=== PATIENT | male | born 1940 | race Caucasian/White ===

== ENCOUNTER 2018-03-17 10:38 | Emergency (ER) | payer BC ==
--- NOTE | 2018-03-17 10:52 | Emergency Department Record ---
History of Present Illness - General Chief complaint: Fatigue and Weakness Stated complaint: CONFUSED Time Seen by Provider: 03/17/18 10:40 Source: Patient Mode of Arrival: Wheelchair Limitations: No limitations - History of Present Illness Initial comments: 77 yo male present presents with weakness, slowed, slurred, confused at times, shakiness, facial weakness per the . The onset was about noon yesterday. The patient states he is tired. He denies and headache, chest pain, shortness of breath. He is oriented to person, place and time. The states he is having trouble with words at times, slow, left face appearance different starting yesterday. He has be walking with his cane but slow. He drove to the hospital. No falls or injury. He denies a stroke history. He recently had tests for carotid disease that demonstrated a 60% stenosis of the right carotid that did not require intervention. Normally he is active, conversational. He states he has not taken his Trazadone for 2-3 days. He states it gives him bad dreams. PMHx DE with stent, gout, spinal stenosis, obesity, carotid stent, HTn, neuropathy, renal insufficiency. PCP is Dr Gonzalez. Complaint: Generalized weakness Onset/Timin -: Days(s) Location: Generalized Severity: Moderate Consistency: Constant Improves with: None Worsens with: None Associated Symptoms: Denies other symptoms - [place] Coma Scale Eye Response: (4) Open spontaneously Motor Response: (6) Obeys commands Verbal Response: (5) Oriented [place] Total: 15 - Related Data Home Medications Medication Instructions Recorded Confirmed Last Taken Amlodipine Besylate [Norvasc] 5 mg PO DAILY 03/17/18 03/17/18 Unknown Aspirin [Aspir-Low] 81 mg PO DAILY 03/17/18 03/17/18 Unknown Baclofen 20 mg PO DAILY 03/17/18 03/17/18 Unknown Carbamazepine [Tegretol] 100 mg PO DAILY 03/17/18 03/17/18 Unknown Febuxostat [Uloric] 40 mg PO DAILY 03/17/18 03/17/18 Unknown Lisinopril 10 mg PO DAILY 03/17/18 03/17/18 Unknown Allergies Allergy/AdvReac Type Severity Reaction Status Date / Time transluscent dye Allergy Severe HIVES Uncoded 05/27/16 10:47 Travel Screening - Travel/Exposure Within Last 30 Days Have you traveled within the last 30 days?: No Review of Systems Constitutional: Reports: Weakness. Denies: Chills, Fever Eyes: Denies: Eye discharge, Eye pain, Photophobia ENT: Denies: Congestion, Throat pain Respiratory: Denies: Cough Cardiovascular: Denies: Chest pain, Palpitations, Syncope Endocrine: Reports: Fatigue Gastrointestinal: Denies: Abdominal pain, Diarrhea, Nausea, Vomiting Musculoskeletal: Denies: Arthralgia, Back pain, Joint swelling, Myalgia Skin: Denies: Bruising, Change in color, Rash Neurological: Reports: Weakness. Denies: Abnormal gait, Headache Psychiatric: Denies: Anxiety Hematological/Lymphatic: Denies: Easy bleeding, Easy bruising, Swollen glands Past Medical History - SOCIAL HISTORY Smoking Status: Former smoker Alcohol Use: None Drug Use: None - RESPIRATORY Hx Respiratory Disorders: No - CARDIOVASCULAR Hx Cardio Disorders: Yes Hx Abnormal EKG: Yes Hx Cardiac Cath: Yes Hx Chest Pain: Yes Hx Heart Attack: Yes Hx Hypertension: Yes Comment:: hypercholesteremia - NEURO Hx Neuro Disorders: Yes Hx Neuropathy: Yes - GI Hx GI Disorders: Yes Hx Abdominal Pain: Yes - Hx Genitourinary Disorders: No - ENDOCRINE Hx Endocrine Disorders: No - MUSCULOSKELETAL Hx Musculoskeletal Disorders: Yes Hx Arthritis: Yes Hx Back Injury: Yes Hx Gout: Yes - PSYCH Hx Psych Problems: No - HEMATOLOGY/ONCOLOGY Hx Hematology/Oncology Disorders: No Family Medical History Any Significant Family History?: Yes Hx Heart Disease: Mother, Grandparents Physical Exam - General General Appearance: Alert, Oriented x3, Cooperative, No acute distress, Other ( The patient falls asleep during my examination) - Head Head exam: Atraumatic, Normocephalic, Normal inspection - Eye Eye exam: Normal appearance, PERRL, EOMI. negative: Conjunctival injection, Nystagmus, Periorbital swelling - ENT ENT exam: Normal exam, Mucous membranes moist, Normal orophraynx Ear exam: Normal external inspection Nasal Exam: Normal inspection Mouth exam: Normal external inspection Teeth exam: Normal inspection Throat exam: Normal inspection - Neck Neck exam: Normal inspection, Full ROM. negative: Lymphadenopathy, Tenderness - Respiratory Respiratory exam: Normal lung sounds bilaterally. negative: Respiratory distress - Cardiovascular Cardiovascular Exam: Regular rate, Normal rhythm, Normal heart sounds Peripheral Pulses: 2+: Radial (R), Radial (L) - GI/Abdominal GI/Abdominal exam: Soft, Other (Obese). negative: Tenderness - Rectal Rectal exam: Deferred - exam: Deferred - Extremities Extremities exam: Normal inspection, Full ROM, Normal capillary refill. negative: Tenderness - Back Back exam: Reports: Normal inspection, Full ROM. Denies: Muscle spasm, Rash noted, Tenderness - Neurological Neurological exam: Altered, CN II-XII intact, Motor sensory deficit, Oriented X3 - Psychiatric Psychiatric exam: negative: Anxious, Normal affect (seems somewhat sleepy, answers questions appropriately however.) - Skin Skin exam: Dry, Intact, Normal color, Warm Course Vital Signs 03/17/18 10:39 Temperature 98.0 F Pulse Rate 75 Respiratory 18 Rate Blood Pressure 145/83 Pulse Ox 97 - Reevaluation(s) Reevaluation #1: EKG #1: 1042 Rate: 70 Rhythm: sinus [place]: normal Intervals: normal ST segments: NS no acute changes Prior: 03/17/18 10:54 03/17/18 11:18 [facility] reviewed. Patient had angio 02/27/18. 60 % Stenosis with no need for intervention. 03/17/18 12:00 The CMP was reviewed The patient has new renal insufficiency with a CR of 2.8 and BUN of 40 CT was reviewed with periventricular lesions, no large territorial infarct. 03/17/18 13:01 Dr Guerrero accepts the patient to [facility] for further work up of his symptoms. 03/17/18 13:37 Uric Acid is 7 Ammonia is 46 Medical Decision Making - Lab Data Result diagrams: 03/17/18 10:55 03/17/18 10:55 Disposition Disposition: Transfer Clinical Impression: Acute renal insufficiency, Encephalopathy acute Disposition: Acute Care Hospital Transfer Transfer To: [facility] Reason For Transfer: Acute renal insufficiency, confusion Accepting Physician: Cesar Time Discussed w/Accepting Physician: 12:44 Condition: (2) Stable Forms: Patient Portal Access Time of Disposition: 13:01 Quality - Quality Measures Quality Measures: N/A - Blood Pressure Screening Does Patient Have Any of the Following: Active Dx of HTN Blood Pressure Classification: Pre-Hypertensive BP Reading Systolic Measurement: 145 Diastolic Measurement: 83 Screening for High Blood Pressure: Patient Exclusion, Hx of HTN [G9744]
[2018-03-17 11:02] LABS: BASO % 0.5 % (0-6); GRAN % 65.8 % (47-80); HEMATOCRIT 38.8 % (42.0-52.0); HEMOGLOBIN 13.2 gm/dl (14.0-18.0); LYMPH % 19.5 % (16-45); MEAN PLATELET VOLUME 9.6 fl (7.4-10.4); MONO % 8.2 % (0-9); PLATELET COUNT 193 K/uL (130-400); RED BLOOD COUNT 4.04 M/uL (4.40-5.70); RED CELL DISTRIBUTION WIDTH 13.7 % (11.5-14.5); WHITE BLOOD COUNT W/O DIFF 6.5 K/uL (4.2-12.2)
[2018-03-17 11:03] LABS: MEAN CORPUSCULAR HEMOGLOBIN 32.6 pg (27-33)
[2018-03-17 11:14] LABS: BILIRUBIN,TOTAL 0.2 mg/dL (0.2-1.0); CREATININE 2.8 mg/dL (0.7-1.2); TOTAL PROTEIN 6.6 g/dL (6.6-8.7)
[2018-03-17 11:15] LABS: INR 0.9; PARTIAL THROMBOPLASTIN TIME 29.1 SECONDS (24.5-39.1); PROTHROMBIN TIME (PATIENT) 10.2 SECONDS (9.5-12.1)
[2018-03-17 11:19] LABS: ALB/GLOB RATIO 1.5 (1.1-1.8)
[2018-03-17 11:31] LABS: THYROID STIMULATING HORMONE 1.23 uIU/mL (0.270-4.20)
[2018-03-17] MEDS ORDERED: 0.9 % SODIUM CHLORIDE 1000ML 1,000 ML IV ONE (12:43)
--- NOTE | 2018-03-17 19:28 | CT SCAN REPORT ---
EXAM: CT SCAN HEAD WO CONTRAST HISTORY: CEREBROVASCULAR ACCIDENT. TECHNIQUE: Sequential axial images were obtained from the foramen magnum to the vertex without contrast administration. FINDINGS: There is periventricular small vessel ischemia, left side greater than right. No definitive large territorial infarct, hemorrhage, mass effect, or midline shift. No extra-axial fluid collection. Orbits, paranasal sinuses, and mastoid air cells are normal. IMPRESSION: PERIVENTRICULAR SMALL VESSEL ISCHEMIA, LEFT SIDE GREATER THAN RIGHT. NO DEFINITIVE LARGE TERRITORIAL INFARCT, HEMORRHAGE, MASS EFFECT, OR MIDLINE SHIFT. JOB NUMBER: [id number] MTDD
== END 2018-03-17 15:15 | disposition short-term general hospital (02) ==
LOC: ER 10:38
DX: N28.9 Disorder of kidney and ureter, unspecified (principal); G93.40 Encephalopathy, unspecified; R40.0 Somnolence; I10 Essential (primary) hypertension; I25.2 Old myocardial infarction; Z87.891 Personal history of nicotine dependence
CPT/HCPCS: 70450; 80053; 80156; 80320; 82140; 84443; 84484; 84550; 85025; 85610; 85730; 93005; 93010; 96360; 96361; 99285; J7030

== ENCOUNTER 2019-01-16 22:57 | Emergency (ER) | payer BC ==
[2019-01-16] MEDS ORDERED: ASPIRIN 81 MG CHEWABLE TABLET PO ONE (23:00)
--- NOTE | 2019-01-16 23:04 | Emergency Department Record ---
History of Present Illness - General Chief Complaint: Chest Pain Stated Complaint: HYPERTENTION Time Seen by Provider: 01/16/19 22:59 Source: Patient Mode of Arrival: Ambulatory Limitations: No limitations - History of Present Illness Initial Comments: 78 yo male presents to ED for evaluation of left shoulder pain described as "aching" that radiates to the left jaw while getting ready for bed this evening. Patient reports a history of stents x 2 in 2003, reports that he took Nitro x 2 this evening which improved his pain symptoms. Patient denies fevers , chills, or recent cough/illness symptoms. Patient denies pain with ROM or movement of the left upper extremity. MD Complaint: Chest pain Onset/Timin -: Hour(s) Pain Location: Left chest Pain Radiation: LUE, Jaw/teeth Severity: Moderate Quality: Aching Consistency: Constant Improves With: Medication-other Worsens With: Nothing Treatments Prior to Arrival: Nitroglycerin - Related Data Home Medications Medication Instructions Recorded Confirmed Last Taken Budesonide/Formoterol Fumarate 10.2 gm IH BID 01/16/19 01/16/19 01/16/19 [Symbicort 160-4.5 Mcg Inhaler] Naproxen Sodium [Aleve] 220 mg PO BID 01/16/19 01/16/19 01/16/19 Cool-3 Fatty Acids [Cool-3] 1,000 mg PO DAILY 01/16/19 01/16/19 01/16/19 Tamsulosin HCl [Flomax] 0.4 mg PO DAILY 01/16/19 01/16/19 01/16/19 Allergies Allergy/AdvReac Type Severity Reaction Status Date / Time transluscent dye Allergy Severe HIVES Uncoded 05/27/16 10:47 Review of Systems Constitutional: Denies: Chills, Fever, Malaise, Night sweats Eyes: Denies: Eye discharge, Eye pain ENT: Denies: Congestion, Ear pain, Epistaxis Respiratory: Denies: Cough, Dyspnea Cardiovascular: Reports: Chest pain. Denies: Dyspnea on exertion, Edema Endocrine: Denies: Fatigue, Heat or cold intolerance Gastrointestinal: Denies: Abdominal pain, Nausea, Vomiting Genitourinary: Denies: Incontinence, Retention Musculoskeletal: Denies: Arthralgia, Back pain Skin: Denies: Bruising, Change in color Neurological: Denies: Abnormal gait, Confusion, Headache, Seizure Psychiatric: Denies: Anxiety Hematological/Lymphatic: Denies: Anemia, Blood Clots Past Medical History - SOCIAL HISTORY Smoking Status: Former smoker Drug Use: None - RESPIRATORY Hx Respiratory Disorders: No - CARDIOVASCULAR Hx Cardio Disorders: Yes Hx Abnormal EKG: Yes Hx Cardiac Cath: Yes Hx Chest Pain: Yes Hx Heart Attack: Yes Hx Hypertension: Yes Comment:: hypercholesteremia - NEURO Hx Neuro Disorders: Yes Hx Neuropathy: Yes - GI Hx GI Disorders: Yes Hx Abdominal Pain: Yes - Hx Genitourinary Disorders: No - ENDOCRINE Hx Endocrine Disorders: No - MUSCULOSKELETAL Hx Musculoskeletal Disorders: Yes Hx Arthritis: Yes Hx Back Injury: Yes Hx Gout: Yes - PSYCH Hx Psych Problems: No - HEMATOLOGY/ONCOLOGY Hx Hematology/Oncology Disorders: No Family Medical History Hx Heart Disease: Mother, Grandparents Physical Exam - General General Appearance: Alert, Oriented x3, Cooperative, Mild distress Limitations: No limitations - Head Head exam: Atraumatic, Normocephalic, Normal inspection Head exam detail: negative: Abrasion, Contusion, Mccain's sign, General tenderness, Hematoma, Laceration - Eye Eye exam: Normal appearance. negative: Conjunctival injection, Periorbital swelling, Periorbital tenderness, Scleral icterus - ENT Ear exam: negative: Auricular hematoma, Auricular trauma Nasal Exam: negative: Active bleeding, Discharge, Dried blood, Foreign body Mouth exam: negative: Drooling, Laceration, Muffled voice, Tongue elevation - Neck Neck exam: Normal inspection. negative: Meningismus, Tenderness - Respiratory Respiratory exam: Normal lung sounds bilaterally. negative: Rales, Respiratory distress, Rhonchi, Stridor - Cardiovascular Cardiovascular Exam: Regular rate, Normal rhythm, Normal heart sounds - GI/Abdominal GI/Abdominal exam: Soft. negative: Rebound, Rigid, Tenderness - Rectal Rectal exam: Deferred - exam: Deferred - Extremities Extremities exam: Normal inspection. negative: Pedal edema, Tenderness - Back Back exam: Denies: CVA tenderness (R), CVA tenderness (L) - Neurological Neurological exam: Alert, Normal gait, Oriented X3 - Psychiatric Psychiatric exam: Normal affect, Normal mood - Skin Skin exam: Normal color. negative: Abrasion Type of lesion: negative: abrasion Course - Reevaluation(s) Reevaluation #1: 01/16/19 23:03 EKG: NSR 70 Normal axis, normal intervals No acute ST-T wave changes are present Reevaluation #2: 01/16/19 23:42 Laboratory studies were reviewed and are grossly unremarkable for an acute process. BUN 24/Creatinine 2.0, appears at baseline. CXR: Negative Patient was updated on all results, will initiate transfer for cardiac evaluation. Reevaluation #3: 01/17/19 00:08 Case was discussed with Dr. Gustafson, will accept transfer for further cardiac evaluation. Medical Decision Making - Lab Data Result diagrams: 01/16/19 23:05 01/16/19 23:05 Disposition Disposition: Transfer Clinical Impression: Chest pain Qualifiers: Chest pain type: unspecified Qualified Code(s): R07.9 - Chest pain, unspecified CAD (coronary artery disease) Qualifiers: Coronary Disease-Associated Artery/Lesion type: unspecified vessel or lesion type [place] vs. transplanted heart: [place] heart Associated angina: without angina Qualified Code(s): I25.10 - Atherosclerotic heart disease of [place] coronary artery without angina pectoris Disposition: Acute Care Hospital Transfer Transfer To: [facility] Reason For Transfer: Cardiac evaluation Accepting Physician: Sj Time Discussed w/Accepting Physician: 00:09 Condition: (2) Stable Forms: Patient Portal Access Time of Disposition: 00:09 Quality - Quality Measures Quality Measures: N/A - Blood Pressure Screening Does Patient Have Any of the Following: Active Dx of HTN Blood Pressure Classification: Pre-Hypertensive BP Reading Systolic Measurement: 168 Diastolic Measurement: 86 Screening for High Blood Pressure: Patient Exclusion, Hx of HTN [G9744]
[2019-01-16 23:13] LABS: BASO % 0.4 % (0-6); EOS % 7.1 % (0-6); GRAN % 56.9 % (47-80); HEMATOCRIT 39.5 % (42.0-52.0); HEMOGLOBIN 13.4 gm/dl (14.0-18.0); LYMPH % 28.3 % (16-45); MEAN CELL VOLUME 94.7 fl (81-97); MEAN CORPUSCULAR HEMOGLOBIN 32.1 pg (27-33); MEAN CORPUSCULAR HGB CONC 33.9 g/dl (32-36); MEAN PLATELET VOLUME 9.8 fl (7.4-10.4); MONO % 7.3 % (0-9); PLATELET COUNT 171 K/uL (130-400); RED BLOOD COUNT 4.17 M/uL (4.40-5.70); RED CELL DISTRIBUTION WIDTH 13.2 % (11.5-14.5); WHITE BLOOD COUNT W/O DIFF 6.9 K/uL (4.2-12.2)
[2019-01-16 23:22] LABS: BLOOD UREA NITROGEN 24 mg/dL (8-23); EST GLOMERULAR FILTRATION RATE 35 mL/min
[2019-01-16 23:23] LABS: TOTAL PROTEIN 6.8 g/dL (6.6-8.7)
[2019-01-16 23:25] LABS: GLUCOSE,RANDOM 105 mg/dL (74-109)
[2019-01-16 23:27] LABS: ALB/GLOB RATIO 1.3 (1.1-1.8); ALBUMIN 3.9 g/dL (4.0-5.0); ALT/SGPT 19 U/L (<41); AST/SGOT 19 U/L (10.0-50.0)
[2019-01-16 23:28] LABS: ALKALINE PHOSPHATASE 102 U/L (40-129)
[2019-01-17] MEDS ORDERED: METOPROLOL TART 5 MG/5 ML VIAL IV ONE (00:40)
--- NOTE | 2019-01-19 14:44 | RADIOLOGY REPORT ---
EXAM: CHEST, TWO VIEWS HISTORY: LEFT SIDED CHEST PAIN AND PRESSURE. SYMPTOMS RELIEVED WITH NITRO. TECHNIQUE: PA and lateral upright views of the chest were obtained. Comparison: 11/04/18. FINDINGS: The heart is normal in size. There is calcification of the aorta. The mediastinum and pulmonary vasculature are normal. There is minor linear atelectasis or scarring at the lung bases. There are no acute infiltrates or effusions. There is no pneumothorax. Degenerative changes are present within the spine and shoulders. IMPRESSION: 1. NO ACUTE CHEST PATHOLOGY. 2. MINOR BIBASILAR ATELECTASIS OR SCARRING. JOB NUMBER: [id number] [facility]
== END 2019-01-17 01:07 | disposition short-term general hospital (02) ==
LOC: ER 22:57
DX: R07.9 Chest pain, unspecified (principal); I25.10 Atherosclerotic heart disease of native coronary artery without angina pectoris; M25.512 Pain in left shoulder; I10 Essential (primary) hypertension; I25.2 Old myocardial infarction; Z87.891 Personal history of nicotine dependence
CPT/HCPCS: 71046; 80053; 84484; 85025; 93005; 93010; 96374; 99285

== ENCOUNTER 2019-05-19 12:24 | Emergency (ER) | payer BC ==
[2019-05-19] MEDS ORDERED: TOPICAL LIDOCAINE W/ EPI 5 ML TOP ONE (12:42)
[2019-05-19] MEDS ORDERED: Diph,Pert(Acell),Tet Vac 0.5 ML SYR IM ONE (12:42)
[2019-05-19] MEDS ORDERED: GELATIN SPONGE,ABSORBABLE 12-7MM TP ONE (13:02)
--- NOTE | 2019-05-19 13:04 | Emergency Department Record ---
History of Present Illness - General Chief Complaint: Laceration(s) Stated Complaint: LT THUMB LAC Time Seen by Provider: 05/19/19 12:57 Source: Patient Mode of Arrival: Ambulatory - History of Present Illness Initial Commments: The patient states that two days ago he got the pad side of tip o his thumb in a table umbrella when he was losing it down. He is on plavix and since the injury it has been bleeding on and off for two days. He also is not UTD on his tetanus. He denies other emergent problems. Onset/Timin -: Days(s) - [place] Coma Scale Eye Response: (4) Open spontaneously Motor Response: (6) Obeys commands Verbal Response: (5) Oriented [place] Total: 15 - Related Data Hx Tetanus Toxoid Vaccination: No Allergies Allergy/AdvReac Type Severity Reaction Status Date / Time transluscent dye Allergy Severe HIVES Uncoded 05/27/16 10:47 Travel Screening - Travel/Exposure Within Last 30 Days Have you traveled within the last 30 days?: No - Travel/Exposure Within Last Year Have you traveled outside the [place] in the last year?: No - Additonal Travel Details Have you been exposed to anyone with a communicable illness?: No - Travel Symptoms Symptom Screening: None Review of Systems Reviewed: No additional complaints except as noted below Constitutional: Reports: As per HPI. Denies: Chills, Fever, Malaise, Night sweats, Weakness, Weight change Eyes: Reports: As per HPI. Denies: Eye discharge, Eye pain, Photophobia, Vision change ENT: Reports: As per HPI. Denies: Congestion, Dental pain, Ear pain, Epistaxis, Hearing loss, Throat pain Respiratory: Reports: As per HPI. Denies: Cough, Dyspnea, Hemoptysis, Stridor, Wheezes Cardiovascular: Reports: As per HPI. Denies: Arrhythmia, Chest pain, Dyspnea on exertion, Edema, Murmurs, Orthopnea, Palpitations, Paroxysmal nocturnal dyspnea, Rheumatic Fever, Syncope Endocrine: Reports: As per HPI. Denies: Fatigue, Heat or cold intolerance, Polydipsia, Polyuria Gastrointestinal: Reports: As per HPI. Denies: Abdominal pain, Constipation, Diarrhea, Hematemesis, Hematochezia, Melena, Nausea, Vomiting Genitourinary: Reports: As per HPI. Denies: Dysuria, Frequency, Hematuria, Incontinence, Retention, Testicular pain, Testicular mass, Urgency Musculoskeletal: Reports: As per HPI. Denies: Arthralgia, Back pain, Gout, Join t swelling, Myalgia, Neck pain Skin: Reports: As per HPI. Denies: Bruising, Change in color, Change in hair/nails, Lesions, Pruritus, Rash Neurological: Reports: As per HPI. Denies: Abnormal gait, Confusion, Headache, Numbness, Paresthesias, Seizure, Tingling, Tremors, Vertigo, Weakness Psychiatric: Reports: As per HPI. Denies: Anxiety, Auditory hallucinations, Depression, Homicidal thoughts, Suicidal thoughts, Visual hallucinations Hematological/Lymphatic: Reports: As per HPI. Denies: Anemia, Blood Clots, Easy bleeding, Easy bruising, Swollen glands Past Medical History - SOCIAL HISTORY Smoking Status: Former smoker Alcohol Use: None Drug Use: None - RESPIRATORY Hx Respiratory Disorders: No Hx COPD: Yes - CARDIOVASCULAR Hx Cardio Disorders: Yes Hx Cardiac Cath: Yes Hx Chest Pain: Yes Hx Hypertension: Yes - NEURO Hx Neuro Disorders: Yes Hx Neuropathy: Yes - GI Hx GI Disorders: Yes Hx Abdominal Pain: Yes - Hx Genitourinary Disorders: No - ENDOCRINE Hx Endocrine Disorders: No - MUSCULOSKELETAL Hx Musculoskeletal Disorders: Yes Hx Arthritis: Yes Hx Gout: Yes - PSYCH Hx Psych Problems: No - HEMATOLOGY/ONCOLOGY Hx Hematology/Oncology Disorders: No Family Medical History Any Significant Family History?: No Hx Heart Disease: Mother, Grandparents Physical Exam - General General Appearance: Alert, Oriented x3, Cooperative, No acute distress - Head Head exam: Normal inspection - Eye Eye exam: Normal appearance, PERRL, EOMI. negative: Conjunctival injection, Nystagmus Pupils: Normal accommodation - ENT ENT exam: Normal exam, Mucous membranes moist, Normal external ear exam Ear exam: Normal external inspection. negative: External canal tenderness Nasal Exam: Normal inspection. negative: Discharge, Sinus tenderness Mouth exam: Normal external inspection, Tongue normal Teeth exam: Normal inspection. negative: Dental caries Throat exam: Normal inspection. negative: Tonsillar erythema, Tonsillar exudate - Neck Neck exam: Normal inspection, Full ROM. negative: Lymphadenopathy, Meningismus, Tenderness - Respiratory Respiratory exam: Normal lung sounds bilaterally. negative: Respiratory distress - Cardiovascular Cardiovascular Exam: Regular rate, Normal rhythm, Normal heart sounds - GI/Abdominal GI/Abdominal exam: Soft, Normal bowel sounds. negative: Tenderness - Rectal Rectal exam: Deferred - exam: Deferred - Extremities Extremities exam: Normal inspection, Full ROM, Normal capillary refill, Other (pea size avulsion of tip of thumb pad; slow oozing of small amount of blood; no cellulitis). negative: Calf tenderness, Tenderness - Back Back exam: Reports: Normal inspection, Full ROM. Denies: Muscle spasm, Rash noted, Tenderness - Neurological Neurological exam: Alert, CN II-XII intact, Normal gait, Oriented X3, Reflexes normal. negative: Motor sensory deficit - Psychiatric Psychiatric exam: Normal affect, Normal mood - Skin Skin exam: Dry, Intact, Normal color, Warm Course Vital Signs 05/19/19 12:29 Pulse Rate 70 Respiratory 16 Rate Blood Pressure 146/80 Pulse Ox 95 Medical Decision Making - Management Options MDM Management: No Additional Work-up Planned Disposition Disposition: Discharge Clinical Impression: Chronic anticoagulation Avulsion of finger tip Qualifiers: Encounter type: initial encounter Qualified Code(s): S61.209A - Unspecified open wound of unspecified finger without damage to nail, initial encounter Disposition: Home, Self-Care Condition: (1) Good Instructions: Skin Avulsion (ED) Additional Instructions: Keep thumb covered with tube gauze, clean and dry for 3 days. Continue present medications. PCP follow up as needed. Quality - Quality Measures Quality Measures: N/A - Blood Pressure Screening Does Patient Have Any of the Following: No Blood Pressure Classification: Pre-Hypertensive BP Reading Systolic Measurement: 146 Diastolic Measurement: 80 Screening for High Blood Pressure: Patient Exclusion, Hx of HTN [G9744]
== END 2019-05-19 13:20 | disposition home or self-care (01) ==
LOC: ER 12:24
DX: S61.002A Unspecified open wound of left thumb without damage to nail, initial encounter (principal); Z79.01 Long term (current) use of anticoagulants; W23.0XXA Caught, crushed, jammed, or pinched between moving objects, initial encounter; J44.9 Chronic obstructive pulmonary disease, unspecified; I25.10 Atherosclerotic heart disease of native coronary artery without angina pectoris
CPT/HCPCS: 90715; 96372; 99283

== ENCOUNTER 2019-05-28 09:09 | Day surgery (SDC) | payer BC ==
[2019-05-28] MEDS ORDERED: LIDOCAINE 2% MDV (20MG/ML) 20ML VIAL IV ONE (09:10)
[2019-05-28] MEDS ORDERED: KETAMINE HCL 100MG/1ML VIAL INJ ONE (09:10)
[2019-05-28] MEDS ORDERED: PROPOFOL 10 MG/ML VIAL IV ONE (09:10)
[2019-05-28] MEDS ORDERED: 0.9 % SODIUM CHLORIDE 1000ML 500 ML IV ONE (09:43)
[2019-05-28] MEDS ORDERED: TETRACAINE HCL 0.5% OPTH 2ML SOLU OPTH ONE (10:58)
[2019-05-28] MEDS ORDERED: LIDOCAINE 2% MDV (20MG/ML) 20ML VIAL INJ ONE (10:58)
[2019-05-28] MEDS ORDERED: NEOM/BACI/POLY/HC 3.5 GM OPTH OINT OPTH ONE (10:59)
[2019-05-28] MEDS ORDERED: EPINEPHRINE 1 MG/ML AMPUL IO ONE (10:59)
[2019-05-28] MEDS ORDERED: BRIMONIDINE TARTRATE 0.2% OPTHALMIC DROPS OP ONE (10:59)
[2019-05-28] MEDS ORDERED: TIMOLOL MALEATE 0.5% 5ML BTL OPTH ONE (10:59)
--- NOTE | 2019-06-01 09:12 | Operative Note ---
DATE OF SURGERY: 05/28/2019 PREOPERATIVE DIAGNOSIS: Nuclear sclerotic and cortical cataract, right eye. POSTOPERATIVE DIAGNOSIS: Nuclear sclerotic and cortical cataract, right eye. OPERATION: Phacoemulsification of cataractous lens with implantation of intraocular lens, temporal approach. LENS IMPLANT USED: Addi and Addi Model PCB00 +21.5 diopters. COMPLICATIONS: None. PROCEDURE IN DETAIL: Following a retrobulbar and facial block, the patient was prepped and draped in the usual fashion for eye surgery. A lid speculum was placed in the right eye after which a 2.4 mm tunnel wound was placed at the temporal limbus and dissected into clear cornea. A paracentesis was placed at 2 clock hours to the left and right of the initial incision and the chamber deepened with Viscoelastic. The keratome was then used to enter the anterior chamber after which the right capsulorrhexis was accomplished without difficulty using a bent needle and Utrata forceps. Hydrodissection and hydrodelineation of the lens was performed after which the nucleus of the lens was removed using the Phaco handpiece in the divide and conquer technique. The residual cortical material was irrigated and aspirated from the eye, after which the bag and chamber were reexamined. The bag was re-inflated with Viscoelastic and the intraocular lens injected into the capsular bag where it centered well. The Viscoelastic was then copiously irrigated and aspirated from the eye after which the temporal tunnel wound and paracentesis were hydrated and the wounds were examined. They were noted to be watertight. The lid speculum was removed from the eye and the eye patched and shielded. The patient was transferred to recovery in satisfactory condition. JAIRO
== END 2019-05-28 11:35 | disposition home or self-care (01) ==
LOC: SUR 09:09
PROVIDERS: ATTEND Ophthalmology
DX: H25.11 Age-related nuclear cataract, right eye (principal); I10 Essential (primary) hypertension; J44.9 Chronic obstructive pulmonary disease, unspecified; E78.00 Pure hypercholesterolemia, unspecified; G62.9 Polyneuropathy, unspecified; I25.10 Atherosclerotic heart disease of native coronary artery without angina pectoris; Z95.5 Presence of coronary angioplasty implant and graft; G47.33 Obstructive sleep apnea (adult) (pediatric)
CPT/HCPCS: J0171; J3490; J7030

== ENCOUNTER 2019-10-05 13:35 | Emergency (ER) | payer MEDICARE, OTHER ==
[2019-10-05] MEDS ORDERED: IPRATROPIUM/ALBUTEROL (0.5MG/3MG) NEB INH ONE ×2 (13:56→15:27)
[2019-10-05] MEDS ORDERED: METHYLPREDNISOLONE PF 125MG/VIAL IVP ONE (13:56)
[2019-10-05] MEDS ORDERED: ACETAMINOPHEN 500 MG TABLET PO ONE (13:58)
--- NOTE | 2019-10-05 14:05 | Emergency Department Record ---
History of Present Illness - General Chief Complaint: Shortness of breath Stated Complaint: DISORIENTED,OCTAVIO,SHAKEY Time Seen by Provider: 10/05/19 13:55 Source: Patient, Family (daughters x 2) Mode of Arrival: Wheelchair Limitations: No limitations - History of Present Illness Initial Comments: Pt presents from home with daughters for confusion. Pt is normally very active and alert but today had some confusion at home. Pt has hx COPD and uses inhaler but no Home O2. Smoke in distant past but not for over 20 years. Daughters feel he is more alert and appropriate on arrival and pt able to answer questions correctly. Pt relates recent cough which he thought was " jsut from COPD". No report of fever or chills, no CP. Pt does feel "tired". No AP, N/V/D. Pt drove himself to [place] today and home after activity. Family does not denote change in speech, gait, or motor skills. No hx TIA/CVA. Onset/Timin -: Hour(s) Consistency: Now resolved Improves With: Nothing Worsens With: Nothing Known History Of: COPD Associated Symptoms: Denies other symptoms Treatments Prior to Arrival: None - Related Data Home Medications Medication Instructions Recorded Confirmed Last Taken Trazodone HCl 50 mg PO QHS 10/05/19 10/05/19 Unknown Allergies Allergy/AdvReac Type Severity Reaction Status Date / Time transluscent dye Allergy Severe HIVES Uncoded 10/05/19 13:55 Travel Screening - Travel/Exposure Within Last 30 Days Have you traveled within the last 30 days?: No Review of Systems Constitutional: Denies: Chills, Fever, Weakness Eyes: Denies: Eye discharge, Photophobia ENT: Denies: Congestion Respiratory: Reports: As per HPI, Cough. Denies: Hemoptysis, Wheezes Cardiovascular: Denies: Arrhythmia, Chest pain, Syncope Endocrine: Reports: Fatigue. Denies: Polydipsia, Polyuria Gastrointestinal: Denies: Abdominal pain, Nausea, Vomiting Genitourinary: Denies: Discharge, Frequency Musculoskeletal: Denies: Back pain Skin: Denies: Bruising, Rash Neurological: Reports: As per HPI, Confusion. Denies: Abnormal gait, Headache, Tremors, Weakness Psychiatric: Denies: Anxiety Hematological/Lymphatic: Denies: Anemia Past Medical History - SOCIAL HISTORY Smoking Status: Former smoker - RESPIRATORY Hx Respiratory Disorders: Yes Hx Asthma: Yes (triggered by allergies as child) Hx COPD: Yes (recent Dx-controlled w meds) Hx Sleep Apnea: Yes Hx of CPAP: Yes - CARDIOVASCULAR Hx Cardio Disorders: Yes Hx Cardiac Cath: Yes (prior to stents) Hx Chest Pain: Yes Hx Edema: Yes Hx Heart Attack: Yes Hx Hypertension: Yes (controlled w meds) Hx Vascular Disease: Yes (multiple stents) Hx Coronary Stent: Yes (2003 x2 stents) Comment:: high cholesterolbi - NEURO Hx Neuro Disorders: Yes Hx Neuropathy: Yes (bilat legs-takes meds to Rx) - GI Hx GI Disorders: Yes Hx Abdominal Pain: Yes - Hx Genitourinary Disorders: No Hx Prostate Problems: Yes (takes tamsulosin) Hx Renal Disease: Yes (sees a procurement technician says kidneys are at 40%) Hx UTI: Yes (year ago) - ENDOCRINE Hx Endocrine Disorders: No - MUSCULOSKELETAL Hx Musculoskeletal Disorders: Yes Hx Arthritis: Yes Hx Gout: Yes - PSYCH Hx Psych Problems: Yes Hx Anxiety: Yes (psychosocial issues takes care of ) - HEMATOLOGY/ONCOLOGY Hx Hematology/Oncology Disorders: Yes Hx Bruising: Yes (from Plavix) Family Medical History Any Significant Family History?: Yes Hx Dementia: Father Hx Heart Disease: Mother, Grandparents Hx Stroke: Father Physical Exam - General General Appearance: Alert, Oriented x3, Cooperative, Mild distress - Head Head exam: Atraumatic, Normocephalic Head exam detail: negative: Contusion - Eye Eye exam: Normal appearance, PERRL, EOMI. negative: Nystagmus - ENT ENT exam: Mucous membranes moist Ear exam: Normal external inspection Nasal Exam: Normal inspection Mouth exam: Normal external inspection Teeth exam: Normal inspection - Neck Neck exam: Normal inspection, Full ROM. negative: Lymphadenopathy, Tenderness - Respiratory Respiratory exam: Decreased breath sounds, Rhonchi. negative: Respiratory distress, Wheezes - Cardiovascular Cardiovascular Exam: Regular rate, Normal rhythm. negative: Tachycardia Peripheral Pulses: 2+: Radial (R), Radial (L) - GI/Abdominal GI/Abdominal exam: Soft, Normal bowel sounds. negative: Distended, Tenderness - Rectal Rectal exam: Deferred - exam: Deferred - Extremities Extremities exam: Normal inspection. negative: Calf tenderness, Joint swelling, Pedal edema, Tenderness - Back Back exam: Reports: Normal inspection - Neurological Neurological exam: Alert, CN II-XII intact, Oriented X3. negative: Motor sensory deficit - Psychiatric Psychiatric exam: Normal affect, Normal mood - Skin Skin exam: Normal color. negative: Pallor, Rash Course Vital Signs 10/05/19 13:42 Temperature 101.2 F H Pulse Rate 100 H Respiratory 20 Rate Blood Pressure 121/59 Pulse Ox 93 L - Reevaluation(s) Reevaluation #1: 10/05/19 14:06 seen on arrival with RN and daughters at bedside. Pt able to interact and give appropriate answers. Lungs sound tight and +fever. Plan for eval with lab and Xray. CT brain. Reevaluation #2: 10/05/19 14:58 Improved exchange after Duoneb treatment. Pt sitting on bed anxious to go home. Discussed need to stay for evaluation. Daughters are present and talking with patient. Reevaluation #3: 10/05/19 15:01 Trop elevated slightly. ASA given and await CXR. Fever and elevated WBC with concern for pneumonia. Reevaluation #4: 10/05/19 15:28 CXR without infiltrate. Temp down to 98. Second Duoneb ordered. IV Rocephin and Zithro ordered. Pt with exacerbation of COPD and elevated Trop. Agrees with [facility] admission. Daughters present agree with plan. Feels improved from arrival. Mentation is baseline normal. CT brain result pending. Procedures - EKG Initial Date: 10/05/19 Time: 14:45 EKG: No Acute Changes (NSR 90) Medical Decision Making - Management Options [facility] Management: Additional Work-up Planned (e.g. ADM/Transfer/OP Study) - Data Complexity MDM Data: Labs Ordered and/or Reviewed, X-Ray Ordered and/or Reviewed, EKG Ordered and/or Reviewed, Independent Visualization of Image, Tracing, or Specimen - Lab Data Result diagrams: 10/05/19 14:05 10/05/19 14:05 - EKG Data -: EKG Interpreted by Me - Radiology Data Radiology results: Report reviewed, Image reviewed Disposition Disposition: Transfer Clinical Impression: COPD exacerbation, Elevated troponin, Confusion and disorientation Fever Qualifiers: Fever type: unspecified Qualified Code(s): R50.9 - Fever, unspecified Disposition: Acute Care Hospital Transfer Transfer To: [facility] Reason For Transfer: Cardiac issues and COPD exacerbaton Accepting Physician: Dr. Freitas Time Discussed w/Accepting Physician: 15:59 Condition: (3) Guarded Forms: Patient Portal Access Time of Disposition: 15:59 Quality - Quality Measures Quality Measures: N/A - Blood Pressure Screening Does Patient Have Any of the Following: No Blood Pressure Classification: Pre-Hypertensive BP Reading Systolic Measurement: 121 Diastolic Measurement: 59 Screening for High Blood Pressure: < Pre-Hypertensive BP, F/U Documented > [G8950] Pre-Hypertensive Follow-up Interventions: Follow-up with rescreen every year.
[2019-10-05 14:31] LABS: ABSOLUTE NEUTROPHIL COUNT 13.19; HEMATOCRIT 39.9 % (42.0-52.0); HEMOGLOBIN 13.2 gm/dl (14.0-18.0); MEAN CELL VOLUME 94.3 fl (81-97); MEAN CORPUSCULAR HEMOGLOBIN 31.2 pg (27-33); MEAN CORPUSCULAR HGB CONC 33.1 g/dl (32-36); MEAN PLATELET VOLUME 9.7 fl (7.4-10.4); PLATELET COUNT 192 K/uL (130-400); RED BLOOD COUNT 4.23 M/uL (4.40-5.70); RED CELL DISTRIBUTION WIDTH 13.1 % (11.5-14.5); WHITE BLOOD COUNT W/O DIFF 14.5 K/uL (4.2-12.2)
[2019-10-05 14:39] LABS: INFLUENZA A NEGATIVE (NEGATIVE); INFLUENZA B NEGATIVE (NEGATIVE)
[2019-10-05 14:43] LABS: CREATININE 2.3 mg/dL (0.7-1.2)
[2019-10-05 14:51] LABS: NTpro B-NATRIURETIC PEPTIDE 149.1 pg/mL (<450)
[2019-10-05] MEDS ORDERED: ASPIRIN 81 MG CHEWABLE TABLET PO ONE (15:00)
[2019-10-05] MEDS ORDERED: CEFTRIAXONE SODIUM 1 GM in 0.9 % SODIUM CHLORIDE 100ML 100 ML IVPB ONE (15:26)
[2019-10-05] MEDS ORDERED: AZITHROMYCIN 500 MG in 0.9 % SODIUM CHLORIDE 250ML 250 ML IVPB ONE (15:27)
--- NOTE | 2019-10-05 15:33 | CT SCAN REPORT ---
EXAMINATION: HEAD WO CONTRAST EXAM DATE: 10/05/2019 3:22 PM TECHNIQUE: Noncontrast axial images were obtained to the brain. INDICATION: confusion COMPARISON: 03/17/2018 ENCOUNTER: Not applicable. HAND DOMINANCE: Unknown FINDINGS: Low-attenuation areas in the periventricular and subcortical white matter. 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 No loss of barraza-white m atter differentiation or sulcal effacement to indicate acute infarction. No evidence of intracranial mass. There is enlargement of the ventricles, sulci, and subarachnoid spaces. No hydrocephalus. There is prominent arterial calcification. No intra-axial or extra-axial fluid collection. No evidence of intracranial hemorrhage. The paranasal sinuses, mastoid air cells, and orbits are unremarkable. Bilateral cataract surgery Th e calvarium is intact. Mild motion artifact is noted IMPRESSION: 1. No CT evidence of intracranial hemorrhage or acute intracranial abnormality. 2. Old ischemic changes: Mild white matter hypoattenuation most commonly represents chronic microvas cular ischemic disease. 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 Dictated by: LUIGI HURST MD on 10/05/2019 3:28 PM. .
--- NOTE | 2019-10-05 15:52 | RADIOLOGY REPORT ---
EXAMINATION: Two View Chest Radiographs EXAM DATE: 10/05/2019 3:23 PM TECHNIQUE: Frontal and lateral views INDICATION: OCTAVIO with fever COMPARISON: 01/16/2019 ENCOUNTER: Not applicable FINDINGS: Cardiomediastinal structures stable. No pulmonary consolidation or infiltration. No pneumothorax or p leural effusion. IMPRESSION: No acute abnormality Dictated by: Jamaal Martinez MD on 10/05/2019 3:40 PM. .
== END 2019-10-05 18:57 | disposition short-term general hospital (02) ==
LOC: ER 13:35
DX: J44.1 Chronic obstructive pulmonary disease with (acute) exacerbation (principal); R50.9 Fever, unspecified; R79.89 Other specified abnormal findings of blood chemistry; R41.0 Disorientation, unspecified; I25.2 Old myocardial infarction; I10 Essential (primary) hypertension; Z87.891 Personal history of nicotine dependence
CPT/HCPCS: 70450; 71046; 80048; 83880; 84484; 85027; 85379; 87400; 93005; 93010; 94640; 96365; 96366; 96368; 96375; 99285; J0456; J2930; J7050

== ENCOUNTER 2019-11-02 20:44 | Emergency (ER) | payer MEDICARE, OTHER ==
--- NOTE | 2019-11-02 21:08 | Emergency Department Record ---
History of Present Illness - General Chief Complaint: Hypertension Stated Complaint: HIGH BLOOD PRESSURE Time Seen by Provider: 11/02/19 20:59 Source: Patient Mode of Arrival: Ambulatory Limitations: No limitations - History of Present Illness Initial Comments: 79 yo male presents to ED for evaluation of elevated blood pressure this evening. Patient does report seeing his Jute Bag Clipper earlier this afternoon, reports that his Amlodipine was doubled with the first dose this evening. Patient reports mild headache symptoms, denies focal weakness, numbness, tingling, or chest discomfort symptoms. Onset/Timin -: Days(s) Timing: Gradual onset History of Same: Yes History of Trauma: No Improves With: Nothing Worsens With: Nothing Associated Symptoms: Denies other symptoms - [place] Coma Scale Eye Response: (4) Open spontaneously Motor Response: (6) Obeys commands Verbal Response: (5) Oriented Fanta Total: 15 - Related Data Allergies Allergy/AdvReac Type Severity Reaction Status Date / Time transluscent dye Allergy Severe HIVES Uncoded 11/02/19 21:02 Travel/Exposure Screening - Travel/Exposure Within Last 30 Days Have you traveled within the last 30 days?: No Review of Systems Constitutional: Denies: Chills, Fever, Malaise, Night sweats Eyes: Denies: Eye discharge, Eye pain ENT: Denies: Congestion, Ear pain, Epistaxis Respiratory: Denies: Cough, Dyspnea Cardiovascular: Denies: Chest pain, Dyspnea on exertion Endocrine: Denies: Fatigue, Heat or cold intolerance Gastrointestinal: Denies: Abdominal pain, Nausea, Vomiting Genitourinary: Denies: Incontinence, Retention Musculoskeletal: Denies: Arthralgia, Back pain Skin: Denies: Bruising, Change in color Neurological: Reports: Headache. Denies: Abnormal gait, Confusion, Seizure Psychiatric: Denies: Anxiety Hematological/Lymphatic: Denies: Anemia, Blood Clots Past Medical History - SOCIAL HISTORY Smoking Status: Former smoker Alcohol Use: None Drug Use: None - RESPIRATORY Hx Respiratory Disorders: Yes Hx Asthma: Yes (triggered by allergies as child) Hx COPD: Yes (recent Dx-controlled w meds) Hx Sleep Apnea: Yes Hx of CPAP: Yes - CARDIOVASCULAR Hx Cardio Disorders: Yes Hx Cardiac Cath: Yes (prior to stents) Hx Chest Pain: Yes Hx Edema: Yes Hx Heart Attack: Yes Hx Hypertension: Yes (controlled w meds) Hx Vascular Disease: Yes (multiple stents) Hx Coronary Stent: Yes (2003 x2 stents) Comment:: high cholesterolbi - NEURO Hx Neuro Disorders: Yes Hx Neuropathy: Yes (bilat legs-takes meds to Rx) - GI Hx GI Disorders: Yes Hx Abdominal Pain: Yes - Hx Genitourinary Disorders: No Hx Prostate Problems: Yes (takes tamsulosin) Hx Renal Disease: Yes (sees a remote sensing engineer says kidneys are at 40%) Hx UTI: Yes (year ago) - ENDOCRINE Hx Endocrine Disorders: No - MUSCULOSKELETAL Hx Musculoskeletal Disorders: Yes Hx Arthritis: Yes Hx Gout: Yes - PSYCH Hx Psych Problems: Yes Hx Anxiety: Yes (psychosocial issues takes care of ) - HEMATOLOGY/ONCOLOGY Hx Hematology/Oncology Disorders: Yes Hx Bruising: Yes (from Plavix) Family Medical History Any Significant Family History?: Yes Hx Dementia: Father Hx Heart Disease: Mother, Grandparents Hx Stroke: Father Physical Exam - General General Appearance: Alert, Oriented x3, Cooperative, No acute distress Limitations: No limitations - Head Head exam: Atraumatic, Normocephalic, Normal inspection Head exam detail: negative: Abrasion, Contusion, Mccain's sign, General tenderness, Hematoma, Laceration - Eye Eye exam: Normal appearance. negative: Conjunctival injection, Periorbital swelling, Periorbital tenderness, Scleral icterus - ENT Ear exam: negative: Auricular hematoma, Auricular trauma Nasal Exam: negative: Active bleeding, Discharge, Dried blood, Foreign body Mouth exam: negative: Drooling, Laceration, Muffled voice, Tongue elevation - Neck Neck exam: Normal inspection. negative: Meningismus, Tenderness - Respiratory Respiratory exam: Normal lung sounds bilaterally. negative: Rales, Respiratory distress, Rhonchi, Stridor - Cardiovascular Cardiovascular Exam: Regular rate, Normal rhythm, Normal heart sounds - GI/Abdominal GI/Abdominal exam: Soft. negative: Rebound, Rigid, Tenderness - Rectal Rectal exam: Deferred - exam: Deferred - Extremities Extremities exam: Normal inspection. negative: Pedal edema, Tenderness - Back Back exam: Denies: CVA tenderness (R), CVA tenderness (L) - Neurological Neurological exam: Alert, Normal gait, Oriented X3 - Psychiatric Psychiatric exam: Normal affect, Normal mood - Skin Skin exam: Normal color. negative: Abrasion Type of lesion: negative: abrasion Course Vital Signs 11/02/19 20:54 Temperature 97.1 F L Pulse Rate [ 82 Left] Respiratory 18 Rate Blood Pressure 192/94 [Left Arm] Pulse Ox 94 L - Reevaluation(s) Reevaluation #1: 11/02/19 21:11 On examination, patient's BP 192/94 Discussed obtaining laboratory studies to assess for change in his renal function, patient declined as he is concerned about getting his home at this time. I did discuss that immediate intervention for his blood pressure is not indicat ed based on my examination Patient appears stable for discharge at this time. Disposition Disposition: Discharge Clinical Impression: Chronic hypertension Disposition: Home, Self-Care Condition: (2) Stable Instructions: Hypertension (ED) Additional Instructions: Return to ED if your symptoms worsen or if you have any concerns. Continue your home medications as directed. Follow-up with your family doctor in 3-5 days as directed. Forms: Patient Portal Access Time of Disposition: 21:08 Quality - Quality Measures Quality Measures: N/A - Blood Pressure Screening Does Patient Have Any of the Following: Active Dx of HTN Blood Pressure Classification: Hypertensive Reading Systolic Measurement: 192 Diastolic Measurement: 94 Screening for High Blood Pressure: Patient Exclusion, Hx of HTN [G9744]
== END 2019-11-02 21:37 | disposition home or self-care (01) ==
LOC: ER 20:44
DX: I10 Essential (primary) hypertension (principal); R51 Headache; I25.2 Old myocardial infarction; Z87.891 Personal history of nicotine dependence
CPT/HCPCS: 99282